=== PATIENT | female | born 1990 | race Caucasian/White ===

== ENCOUNTER 2022-06-16 07:56 | Emergency (ER) | payer BC, SELFPAY ==
[2022-06-16 07:57] VITALS: BP 125/94; PULSE 73; RESP 18; TEMP 36.3; O2SAT 100; BMI 30.1
[2022-06-16 08:19] LABS: Microscopic, Urine URINE MICROSCOPIC (MICROSCOPIC)
[2022-06-16 08:22] LABS: Appearance,Urine CLOUDY (Clear); Blood, Urine 3+ (Negative); Color,Urine YELLOW (Yellow); Glucose,Urine (UA) Negative (Negative); Ketones,Urine Negative (Negative); Leukocyte Esterase,Urine Negative (Negative); Nitrate,Urine Negative (Negative); PH,Urine 7.5 (5.0-8.5); Protein,Urine 2+ (Negative); Specific Gravity, Urine 1.015 (1.005-1.030)
[2022-06-16 08:24] LABS: Urine Pregnancy, HCG Qual. Negative (Negative)
--- NOTE | 2022-06-16 08:27 | US_ITS ---
FINAL REPORT CLINICAL HISTORY: R pain FINDINGS: Transvaginal sonographic images of the pelvis were obtained. The uterus measures 8.4 x 4.0 x 4.0 cm. The endometrium measures 6 mm, which is within normal limits. No uterine mass is identified. The right ovary measures 2.4 cm in length and left ovary measures 2.7 cm in length. Normal blood flow seen to the ovaries. Small follicles are present. There is no evidence of free fluid. IMPRESSION: No acute abnormality identified. Reviewed, Interpreted and Dictated by Amauri Beck III, MD Transcribed by Chris Nunez Authenticated and [facility]
[2022-06-16 08:29] LABS: Bilirubin,Urine 1+ (Negative); RBC,Urine TNTC #/hpf (0-3)
[2022-06-16 08:30] LABS: Bacteria,Urine Trace /lpf
--- NOTE | 2022-06-16 08:33 | PC.NURSE ---
notified rad staff of ultrasound order
[2022-06-16 08:40] LABS: Basophils # 0.1 K/mm3 (0-0.2); Basophils % 1.2 % (0.1-2.0); Eosinophils # 0.1 K/mm3 (0.0-0.4); Eosinophils % 1.1 % (0.1-12.0); Hematocrit 46.4 % (37.0-47.0); Hemoglobin 15.4 g/dL (12.2-16.2); Lymphocytes # 1.4 K/mm3 (0.7-4.5); Lymphocytes % 19.6 % (10-50); Mean Corpuscular HGB Conc 33.2 g/dL (31.8-35.4); Mean Corpuscular Hemoglobin 31.6 pg (27.0-31.2); Mean Corpuscular Volume 95.1 fl (81-99); Mean Platelet Volume 7.1 fl (7.4-10.4); Monocytes # 0.4 K/mm3 (0.1-1.0); Monocytes % 5.6 % (1.7-9.3); Neutrophils % 72.5 % (37.0-80.0); Platelet Count 337 K/mm3 (142-424); Red Blood Count 4.88 M/mm3 (4.20-5.40); Red Cell Distribution Width 12.8 % (11.5-17.5)
[2022-06-16 08:41] LABS: Chloride 106 mmol/L (98-107); Potassium 3.9 mmoL/L (3.5-5.1); Sodium 143 mmol/L (136-145)
--- NOTE | 2022-06-16 08:42 | PC.NURSE ---
notified ER MD pt states pain is worsening
[2022-06-16 08:44] LABS: Alanine Aminotransferase 30 U/L (12-78); Albumin Level 4.5 g/dl (3.5-5.0); Albumin/Globulin Ratio 1.4 (1.1-1.8); Alkaline Phosphatase 84 U/L (38-126); Anion Gap 14.9 mEq/L (5-15); Aspartate Amino Transferase 30 U/L (14-36); Bilirubin,Total 0.4 mg/dl (0.2-1.3); Blood Urea Nitrogen 15 mg/dl (7-17); Calcium 8.8 mg/dl (8.4-10.2); Carbon Dioxide 26 mmol/L (22.0-30.0); Creatinine Clearance Estimated 144 mL/min (50-200); Estimated Glomerular Filt Rate 99 ml/min (>60); GFR (African American) 120 ML/MIN (>60); Globulin 3.3 g/dL (1.3-3.2); Glucose 118 mg/dl (74-100); Total Protein,Serum 7.8 g/dl (6.3-8.2)
[2022-06-16 08:47] LABS: Lactic Acid 2.1 mmol/L (0.7-2.1)
[2022-06-16 08:48] VITALS: BP 117/81; PULSE 73; RESP 16; O2SAT 99
--- NOTE | 2022-06-16 08:55 | PC.NURSE ---
pt reports pain has decreased at this, sitting up on side of the bed, lights dimmed in room for comfort.
--- NOTE | 2022-06-16 09:15 | PC.NURSE ---
pt to ultrasound
--- NOTE | 2022-06-16 09:39 | CT_ITS ---
FINAL REPORT CLINICAL HISTORY: Right flank pain FINDINGS: Axial CT images of the abdomen and pelvis were obtained without intravenous contrast. Coronal reformatted images were also obtained.This study was performed with techniques to keep radiation doses as low as reasonably achievable (ALARA). Individualized dose reduction techniques using automated exposure control or adjustment of mA and/or kV according to the patient''s size were employed. Abdomen: The lung bases are clear. There is a less than 3 mm nonobstructing left renal stone. There is mild hydronephrosis and hydro ureter secondary to a 7 mm distal right ureteral stone at the level of the mid pelvis. The liver, spleen and pancreas have an unremarkable, unenhanced appearance. No mass or adenopathy is seen. No inflammatory process is identified. Pelvis: The appendix is normal. There are multiple diverticula in the colon. No masses identified. IMPRESSION: 7 mm distal right ureteral stone with mild hydronephrosis and hydroureter. Reviewed, Interpreted and Dictated by Amauri Beck III, MD Transcribed by Radha Wiggins Authenticated and [facility]
--- NOTE | 2022-06-16 09:40 | PC.NURSE ---
pt return from ultrasound, verbal report given to ER MD per rad staff. notified rad staff of ct order
--- NOTE | 2022-06-16 09:48 | HMH.EDGENADL ---
Discharge Plan Disposition Patient Disposition: Home, Self-Care Condition: Good Prescriptions Prescriptions: New ketorolac 10 mg tablet 10 mg PO Q6H PRN (Reason: pain) 4 Days Qty: 16 0RF ondansetron 4 mg tablet,disintegrating 4 mg PO Q8H PRN (Reason: nausea and vomiting) 3 Days Qty: 10 0RF tamsulosin [Flomax] 0.4 mg capsule 0.4 mg PO DAILY Qty: 30 0RF hydrocodone-acetaminophen 5-325 mg tablet 1 tab PO Q4H PRN (Reason: pain) Qty: 14 0RF Referrals Follow up/Referrals: Jason Arboleda [Primary Care Provider] - See instructions Activity Restrictions/Add. Instructions Additional Instructions/Restrictions: Medications as directed. Follow-up PCP/urology in 1 to 2 days. Return to ER for fever, worsening pain. Clinical Impressions Clinical Impression: Ureterolithiasis, Hydronephrosis, Acute right flank pain Instructions Patient Instructions: Kidney Stones -- Adult, DI for Acute Abdominal Pain, DI for Hydronephrosis-Adult Discharge ED Provider: Clint Horan General Adult HPI General Chief complaint: Abdominal Pain Stated complaint: abd pain Time Seen by Provider: 06/16/22 08:00 Mode of Arrival: Ambulatory Source of Information: Patient Limitations: No Limitations Description of Symptoms (Recalled from ER Triage Doc. by RN): Pt c/o R lower abd pain that radiates to flank area that began approxs 0630 this morning. Pt reports pain worsened after pumping (breast milk). Pt reports has noticed blood in her urine the past couple days. Pt also reports nausea. History of Present Illness HPI narrative: 31yo F that denies significant past medical history presents the emergency department secondary to right lower abdominal/pelvic pain that significantly worsened at approximately 630 this morning. Reports has had intermittent symptoms over the past several days. Noticed scant blood in her urine over the past couple days. Denies any back pain. No history of kidney stone. Reports delivered her first child roughly 1 year ago. Notes that her pain seems worse after pumping daily. No fever. Complains of nausea with severe pain. No change in bowel habits. Has not restarted her menstrual cycles following delivery. Related Data Previous Rx's Medication Instructions Recorded hydrocodone 5 mg-acetaminophen 325 1 tab PO Q4H PRN pain #14 tabs 06/16/22 mg tablet ketorolac 10 mg tablet 10 mg PO Q6H PRN pain 4 days #16 06/16/22 tabs ondansetron 4 mg disintegrating 4 mg PO Q8H PRN nausea and 06/16/22 tablet vomiting 3 days #10 tabs tamsulosin 0.4 mg capsule (Flomax) 0.4 mg PO DAILY #30 caps 06/16/22 Allergies Allergy/AdvReac Type Severity Reaction Status Date / Time No Known Allergies Allergy Verified 06/16/22 08:26 [facility] Disclaimer: The information contained in this section may have been updated after the patient was seen, as this information can be updated by other users. Social History Smoking Status: Never smoker alcohol intake: never current occupational status: employed Travel in the last 8 weeks: None ROS Obtained: Yes Systems reviewed as appropriate & no additional complaints except as documented Physical Exam General General appearance: alert Comment: Acutely uncomfortable Head Head exam: atraumatic Eye Eye exam: Present normal appearance; Absent conjunctival injection Neck Neck exam: Present normal inspection and trachea midline Chest Chest inspection: Present symmetric chest wall rise Respiratory Respiratory exam: Present normal lung sounds bilaterally; Absent respiratory distress or accessory muscle use Cardiovascular Cardiovascular exam: Present regular rate, normal rhythm and normal heart sounds Abdominal Exam Abdominal exam: Present soft, tenderness (Right lower quadrant tenderness) and normal bowel sounds; Absent distention Back Exam Back exam: Present CVA tenderness (R); Absent CVA tenderness (L) Neurologic
[2022-06-16 10:00] VITALS: BP 107/74; PULSE 53; RESP 20; O2SAT 100
[2022-06-16 10:32] VITALS: BP 104/68; PULSE 60; RESP 20; O2SAT 100
[2022-06-16 11:00] VITALS: BP 97/63; PULSE 53; O2SAT 100
[2022-06-16 11:30] VITALS: BP 97/63; PULSE 53; RESP 16; TEMP 36.3; O2SAT 100
[2022-06-16 12:36] LABS: Reflex Lactic Add Lactic Reflex
== END 2022-06-16 11:30 | disposition home or self-care (01) ==
PROVIDERS: Emergency Provider Family Medicine; PCP Pediatrics
DX: N20.0 Calculus of kidney (principal); N13.30 Unspecified hydronephrosis; R10.31 Right lower quadrant pain; R10.2 Pelvic and perineal pain
CPT/HCPCS: 74176; 76830; 80053; 81001; 81025; 83605; 85025; 96361; 96374; 96375; 99285; J2405